=== PATIENT | female | born 1980 | race Caucasian/White ===

== ENCOUNTER 2019-09-02 12:14 | Emergency (ER) | payer BC, MEDICAID ==
[~2019-09-02] VITALS: Ht 172.7 cm; Wt 78.0 kg
[~2019-09-02 12:14] MED LIST: DICY10CA88 PO; FAMO-1 PO; ONDA8TAB9 PO; PANT-47 PO; ZOF4T PO; lidocaine 1%/epinephrine 1:100,000 injection 50ml vial ONE
[2019-09-02 12:27] VITALS: BP 134/79
[2019-09-02 14:47] LABS: CLARITY,URINE CLEAR (Clear); COLOR,URINE YELLOW (Yellow); GLUCOSE, URINE NEGATIVE (Neg); KETONES,URINE NEGATIVE (Neg); LEUKOCYTE ESTERASE ,URINE NEGATIVE (Neg); NITRITES, URINE NEGATIVE (Neg); OCCULT BLOOD,URINE NEGATIVE (Neg); PROTEIN,URINE NEGATIVE (Neg); UROBILINOGEN,URINE 0.2 E.U/dL (0.2-1.0)
[2019-09-02 14:48] LABS: UA COLLECTION TYPE CLN CATCH MIDSTREAM
[2019-09-02] MEDS ORDERED: BACDS PO (15:38)
[2019-09-02] MEDS ORDERED: CEPH250T PO (15:38)
== END 2019-09-02 15:46 | disposition home or self-care (01) ==
LOC: ER 12:14
DX: N75.1 Abscess of Bartholin's gland (principal); G89.29 Other chronic pain; F10.99 Alcohol use, unspecified with unspecified alcohol-induced disorder; Z86.14 Personal history of Methicillin resistant Staphylococcus aureus infection; Z91.013 Allergy to seafood; Z91.018 Allergy to other foods; Z79.899 Other long term (current) drug therapy; Y90.9 Presence of alcohol in blood, level not specified
CPT/HCPCS: 56420; 81003; 99283